=== PATIENT | male | born 1985 | race Two or more races ===

== ENCOUNTER 2023-10-27 13:55 | Inpatient (IN) | payer MEDICAID, MEDICARE ==
[~2023-10-27] VITALS: Ht 170.2 cm; Wt 97.5 kg
[2023-10-27] MEDS: LORazepam 2MG/ML-1ML VIAL IV ONE (14:44)
[2023-10-27] MEDS: SODIUM CHLORIDE 0.9% 1,000 ML IV ONE ×2 (14:44→17:03)
[2023-10-27 15:00] LABS: Basophils # (auto) 0 10 ^3/uL (0-0.2); Basophils % (auto) 0.3 % (0.0-2.0); Eosinophils # (auto) 0.1 10 ^3/uL (0-0.8); Hematocrit 41.4 % (41.0-53.0); Lymphocytes # (auto) 0.8 10 ^3/uL (0.4-5.4); Lymphocytes % (auto) 7.1 % (10.0-50.0); Mean Corpuscular Hemoglobin 29.7 pg (28.0-32.0); Mean Corpuscular Hgb Conc. 33.7 g/dL (32.0-36.0); Mean Corpuscular Volume 88.1 fL (80.0-100.0); Monocytes # (auto) 0.8 10 ^3/uL (0-1.3); Monocytes % (auto) 6.8 % (0.0-12.0); Neutrophils # (auto) 9.7 10 ^3/uL (1.6-8.6); Neutrophils % (auto) 84.8 % (37.0-80.0); Red Cell Distribution Width 13.3 % (11.8-14.3); White Blood Cell 11.4 10^3/uL (4.4-10.8)
[2023-10-27 15:14] LABS: INR 1.04 (0.9-1.15); Partial Thromboplastin Time 23.9 SEC (24.5-34.5)
[2023-10-27 15:20] LABS: Blood Alcohol < 3.0 mg/dL (<10)
[2023-10-27 15:22] LABS: Alanine Aminotransferase 25 U/L (7-40); Albumin 4.6 g/dL (3.2-4.8); Alkaline Phosphatase 72 U/L (46-116); Anion Gap 10 (5-15); Aspartate Aminotransferase 27 U/L (13-40); BUN/Creatinine Ratio 10.9 (10.0-20.0); Blood Urea Nitrogen 14 mg/dL (9-23); Calcium 10.2 mg/dL (8.7-10.4); Carbon Dioxide 24 mmol/L (20-30); Chloride 105 mmol/L (98-107); Creatine Kinase IFCC 288 U/L (46-171); Glucose 96 mg/dL (74-106); Magnesium 1.6 mg/dL (1.6-2.6); Potassium 4.1 mmol/L (3.5-5.1); Sodium 139 mmol/L (136-145)
[2023-10-27 15:23] LABS: Bilirubin, Total 0.6 mg/dL (0.2-1.0); Total Protein 7.3 g/dL (5.7-8.2)
[2023-10-27 17:12] LABS: Lactic Acid w/Reflex 3.7 mmol/L (0.4-2.0)
[2023-10-27] MEDS: ACETAMINOPHEN 325 MG TAB PO ONE (17:15)
[2023-10-27] MEDS: ONDANSETRON HCL 4 MG/2 ML VIAL IV ONE (17:20)
[2023-10-27 18:00] VITALS: PULSE 113; RESP 19; O2SAT 96
[2023-10-27 18:10] LABS: Urine Bacteria None Seen /hpf (None Seen)
[2023-10-27] MEDS: levoFLOXacin 750MG 150 ML IV ONE (18:13)
[2023-10-27 18:25] LABS: Urine Blood Negative /uL (Negative); Urine Clarity Clear (Clear); Urine Color Light-Yellow (Yellow); Urine Mucus FEW (None Seen); Urine Protein, UAD Negative (Negative); Urine Specific Gravity 1.019 (1.001-1.035); Urine Urobilinogen Normal (Negative); Urine WBC <1 /hpf (0 - 3); Urine pH 6.5 (5.0-9.0)
[2023-10-27 18:32] LABS: Amphetamine Screen, Urine Neg (NEGATIVE); Barbiturate Scree,Urine Neg (NEGATIVE); Benzodiazephine Screen, Urine Neg (NEGATIVE); Cannabinoid Screen, Urine Neg (NEGATIVE); Cocaine Screen, Urine Neg (NEGATIVE); Opiate Scree,Urine Neg (NEGATIVE); Phencyclidine Screen, Urine Neg (NEGATIVE)
[2023-10-27] MEDS ORDERED: ONDANSETRON HCL 4 MG/2 ML VIAL IV PRN (19:15)
[2023-10-27] MEDS ORDERED: ACETAMINOPHEN 325 MG TAB PO PRN (19:15)
[2023-10-27] MEDS ORDERED: DOCUSATE SOD 100 MG CAP PO PRN (19:15)
[2023-10-27] MEDS ORDERED: MORPHINE SULFATE INJ 2 MG/ml SYRG IV PRN ×2 (19:15)
[2023-10-27] MEDS ORDERED: NITROGLYCERIN 0.4 MG SL TAB SL PRN (19:15)
[2023-10-27] MEDS ORDERED: ENOXAPARIN SOD 40 MG/0.4 ML SYRINGE SC ONE (19:15)
[2023-10-27] MEDS: IOHEXOL 350 MG/ML 100ML IJ ONE (19:33)
[2023-10-27 19:43] LABS: COVID19 ANTIGEN SOFIA FIA NEGATIVE (NEGATIVE); Rapid Influenza A Negative (Negative); Rapid Influenza B Negative (Negative)
[2023-10-27] MEDS: ASPirin-EC 81 mg tab PO ONE (20:42)
[2023-10-27] MEDS: ATORVASTATIN 20 MG TAB PO SCH (23:31)
[2023-10-27] MEDS: ENOXAPARIN SOD 100 MG/1 ML SYRINGE SC SCH (23:32)
[2023-10-27] MEDS: SODIUM CHLORIDE 0.9% 1,000 ML IV SCH (23:32)
[2023-10-28] VITALS (7 sets, daily range): BP systolic 109–123; BP diastolic 53–76; PULSE 15–99; RESP 16–21; TEMP 97.9–98.6; O2SAT 94–97
[2023-10-28] MEDS: HYDROcodone-ACET 5/325MG TAB PO PRN (04:40)
[2023-10-28 06:03] LABS: Basophils # (auto) 0 10 ^3/uL (0-0.2); Basophils % (auto) 0.4 % (0.0-2.0); Eosinophils # (auto) 0 10 ^3/uL (0-0.8); Eosinophils % (auto) 0.3 % (0.0-7.0); Hematocrit 35.3 % (41.0-53.0); Hemoglobin 12.3 g/dL (13.5-17.5); Lymphocytes # (auto) 1.5 10 ^3/uL (0.4-5.4); Lymphocytes % (auto) 15.3 % (10.0-50.0); Mean Corpuscular Hemoglobin 30.1 pg (28.0-32.0); Mean Corpuscular Hgb Conc. 34.8 g/dL (32.0-36.0); Mean Corpuscular Volume 86.6 fL (80.0-100.0); Monocytes # (auto) 1.1 10 ^3/uL (0-1.3); Monocytes % (auto) 11.2 % (0.0-12.0); Neutrophils # (auto) 7.2 10 ^3/uL (1.6-8.6); Neutrophils % (auto) 72.8 % (37.0-80.0); Nucleated Red Blood Cells % 0.1 %; Red Blood Cells 4.08 10^6/uL (4.5-5.90); Red Cell Distribution Width 13.3 % (11.8-14.3); White Blood Cell 9.9 10^3/uL (4.4-10.8)
[2023-10-28 06:22] LABS: Alanine Aminotransferase 15 U/L (7-40); Albumin 4.1 g/dL (3.2-4.8); Alkaline Phosphatase 57 U/L (46-116); Anion Gap 7 (5-15); Aspartate Aminotransferase 15 U/L (13-40); BUN/Creatinine Ratio 6.3 (10.0-20.0); Blood Urea Nitrogen 9 mg/dL (9-23); Calcium 9.1 mg/dL (8.5-10.1); Carbon Dioxide 25 mmol/L (20-30); Chloride 107 mmol/L (98-107); Glucose 100 mg/dL (74-106); LDL Cholesterol 78 mg/dL (< 100); Potassium 3.6 mmol/L (3.5-5.1); Sodium 139 mmol/L (136-145); Triglycerides 103 mg/dL (< 150)
[2023-10-28 06:23] LABS: Cholesterol 135 mg/dL (< 200); HDL Cholesterol 28 mg/dL (40-59); Total Protein 6.5 g/dL (5.7-8.2)
[2023-10-28] MEDS ORDERED: ENOXAPARIN SOD 40 MG/0.4 ML SYRINGE SC SCH (10:00)
[2023-10-28] MEDS: PANTOPRAZOLE 40 MG/10 ML VIAL INJ IV SCH (11:20)
[2023-10-28] MEDS: ASPirin-EC 81 mg tab PO SCH (11:20)
[2023-10-28] MEDS: levoFLOXacin 750MG 150 ML IV SCH (11:21)
[2023-10-28] MEDS: POTASSIUM CHL 20 Meq TABLET PO ONE (11:23)
[2023-10-28] MEDS: MAGNESIUM SULFATE 1GM/100ML 100 ML IV ONE (13:34)
[2023-10-29 05:00] VITALS: BP 102/53; PULSE 78; RESP 18; TEMP 98.3; O2SAT 96
[2023-10-29 06:22] LABS: Basophils # (auto) 0 10 ^3/uL (0-0.2); Basophils % (auto) 0.6 % (0.0-2.0); Eosinophils # (auto) 0.1 10 ^3/uL (0-0.8); Eosinophils % (auto) 2.5 % (0.0-7.0); Hematocrit 35.4 % (41.0-53.0); Hemoglobin 12.8 g/dL (13.5-17.5); Lymphocytes # (auto) 2.3 10 ^3/uL (0.4-5.4); Lymphocytes % (auto) 39.5 % (10.0-50.0); Mean Corpuscular Hemoglobin 31.2 pg (28.0-32.0); Mean Corpuscular Hgb Conc. 36.2 g/dL (32.0-36.0); Mean Corpuscular Volume 86.1 fL (80.0-100.0); Monocytes # (auto) 0.8 10 ^3/uL (0-1.3); Monocytes % (auto) 14.1 % (0.0-12.0); Neutrophils # (auto) 2.5 10 ^3/uL (1.6-8.6); Neutrophils % (auto) 43.3 % (37.0-80.0); Nucleated Red Blood Cells % 0.2 %; Red Blood Cells 4.11 10^6/uL (4.5-5.90); Red Cell Distribution Width 13.3 % (11.8-14.3); White Blood Cell 5.8 10^3/uL (4.4-10.8)
[2023-10-29 06:32] LABS: Alanine Aminotransferase 15 U/L (7-40); Albumin 3.9 g/dL (3.2-4.8); Alkaline Phosphatase 50 U/L (46-116); Anion Gap 7 (5-15); Aspartate Aminotransferase 17 U/L (13-40); BUN/Creatinine Ratio 6.7 (10.0-20.0); Blood Urea Nitrogen 8 mg/dL (9-23); Calcium 9.1 mg/dL (8.7-10.4); Carbon Dioxide 26 mmol/L (20-30); Chloride 108 mmol/L (98-107); Glucose 94 mg/dL (74-106); Potassium 4.1 mmol/L (3.5-5.1); Sodium 141 mmol/L (136-145)
[2023-10-29 06:34] LABS: Bilirubin, Total 0.6 mg/dL (0.2-1.0); Total Protein 6.3 g/dL (5.7-8.2)
[2023-10-29 07:06] LABS: RPR Non Reactive (Non Reactive)
[2023-10-29 08:05] VITALS: PULSE 102; O2SAT 95
[2023-10-29] MEDS ORDERED: GADOTERATE MEG 10 MMOL/20ml INJ (0.5MMOL/ml) IV ONE (08:07)
[2023-10-29 08:37] VITALS: BP 102/76; PULSE 72; RESP 15; TEMP 98.1; O2SAT 95
[2023-10-29 08:57] LABS: Hepatitis B Surface Antigen Negative (Negative)
[2023-10-29] MEDS ORDERED: cefTRIAXone 1GM/50ML D5W 50 ML IV SCH (09:00)
[2023-10-29 09:18] LABS: Hepatitis B Core IgM Negative
[2023-10-29 09:19] LABS: Hepatitis C Antibody Negative (Negative)
[2023-10-29 09:21] LABS: Hepatitis A Ab IgM Negative
[2023-10-29] MEDS: levoFLOXacin 500MG 100 ML IV SCH (10:06)
[2023-10-29] MEDS ORDERED: ERGOCALCIFEROL 50,000 UNIT(1.25MG) CAP PO SCH (10:15)
[2023-10-29 12:35] VITALS: BP 110/74; PULSE 65; RESP 15; TEMP 97.9; O2SAT 97
[2023-10-30] MEDS ORDERED: PANTOPRAZOLE 40 MG TAB PO SCH (06:00)
== END 2023-10-29 16:05 | disposition home or self-care (01) | DRG 871 ==
LOC: ER 13:55 → EDBD 13:55 → TELE 19:11 → TELE-EAST 10-28 10:00
PROVIDERS: ADMIT Internal Medicine; ATTEND Emergency Medicine
DX: A41.9 Sepsis, unspecified organism (principal); N17.0 Acute kidney failure with tubular necrosis; E66.9 Obesity, unspecified; F41.9 Anxiety disorder, unspecified; M54.9 Dorsalgia, unspecified; F43.10 Post-traumatic stress disorder, unspecified; Z20.822 Contact with and (suspected) exposure to COVID-19; G89.4 Chronic pain syndrome; M54.50 Low back pain, unspecified; R00.1 Bradycardia, unspecified; D64.9 Anemia, unspecified; G43.909 Migraine, unspecified, not intractable, without status migrainosus; Z82.3 Family history of stroke; Z88.0 Allergy status to penicillin; Z91.041 Radiographic dye allergy status; Z79.899 Other long term (current) drug therapy; Z82.49 Family history of ischemic heart disease and other diseases of the circulatory system; Z87.891 Personal history of nicotine dependence; Z68.33 Body mass index [BMI] 33.0-33.9, adult; G93.9 Disorder of brain, unspecified
CPT/HCPCS: 36415; 70450; 70551; 70553; 71045; 71250; 76775; 80053; 80061; 80074; 80307; 80320; 81001; 82306; 82550; 82607; 83036; 83605; 83735; 83880; 84443; 84484; 85025; 85379; 85610; 85730; 86592; 86703; 87040; 87426; 87804; 93005; 93306; 93970; 96361; 96365; 96375; 99291; C9113; G0378; J1956; J2405